=== PATIENT | male | born 1960 | race Caucasian/White ===

== ENCOUNTER → 2024-07-16 | Outpatient (CLI) | payer OTHER, SELFPAY ==
--- NOTE | 2024-07-16 08:00 | PROSBIL_PTH ---
PATHOLOGY RESULTS PATIENT: RAJAT JUDGE LOC: [facility] U#:[id number] AGE/SX: 63/M ROOM: RE07/16/[address]: Dr. Chaz Shirley MD : [id number] BED: DIS: 07/16/2024 SPEC #: [id number] RECD: 07/16/24 08:00 STATUS: ERICA JASBIR #: [id number] JANETT: 07/16/24 08:[address]: Chaz Shirley DEPT: SURGICAL PATHOLOGY RECD BY: Patricia Oleary ENTERED: 07/17/24 10:01 SP TYPE: PROST BX OT DR: Dr. Felix Burnham MD Tissues: PROSTATE RIGHT PROSTATE RIGHT PROSTATE RIGHT PROSTATE LEFT PROSTATE LEFT PROSTATE LEFT Procedures: PROSTATE BX HEADER OPERATION: Prostate biopsy PRE-OP DIAGNOSIS: Elevated PSA TISSUE SUBMITTED: A - Right apex, B - Right mid, C - Right base, D - Left apex, E - Left mid, F - Left base MICROSCOPIC DIAGNOSIS A. Right prostate, apex, core biopsy: Prostatic adenocarcinoma. Aneta grade: 3+4=7 Number of cores involved: 2/3 Proportion of tissue involved: 40% Perineural invasion: Not identified. Greatest tumor length: 0.3cm B. Right prostate, mid, core biopsy: Prostatic adenocarcinoma. Aneta grade: 3+4=7 Number of cores involved: 2/2 Proportion of tissue involved: 40% Perineural invasion: Not identified. Greatest tumor length: 0.7cm C. Right prostate, base, core biopsy: Prostatic adenocarcinoma. Aneta grade: 3+3=6 Number of cores involved: 1/1 Proportion of tissue involved: 50% Perineural invasion: Present, focal. Greatest tumor length: 0.7cm D. Left prostate, apex, core biopsy: Prostatic tissue, negative for malignancy. Acute and chronic inflammation. E. Left prostate, mid, core biopsy: Prostatic adenocarcinoma. Aneta grade: 3+3=6 Number of cores involved: 1/1 Proportion of tissue involved: 80% Perineural invasion: Not identified. Greatest tumor length: 0.5cm F. Left prostate, base, core biopsy: Prostatic adenocarcinoma. [place]hall grade: 3+3=6 Number of cores involved: 2/2 Proportion of tissue involved: 75% Perineural invasion: Not identified. Greatest tumor length: 0.3cm FLORI/ 07/18/2024 MICROSCOPIC DESCRIPTION Slides are reviewed. GROSS DESCRIPTION A - Received is one container designated prostate, right apex. The specimen consists of three elongated fragments of light thompson-white soft tissue measuring 0.5 to 0.9 cm in length and 0.1 cm in diameter. The specimen is totally submitted in one cassette. B - Received is one container designated prostate, right mid. The specimen consists of two elongated fragments of light thompson-white soft tissue measuring 0.6 and 1.3 cm in length and 0.1 cm in diameter. The specimen is totally submitted in one cassette. C - Received is one container designated prostate, right base. The specimen consists of one elongated fragments of light thompson-white soft tissue measuring 1.3 cm in length and 0.1 cm in diameter. The specimen is totally submitted in one cassette. D - Received is one container designated prostate, left apex. The specimen consists of two elongated fragments of light thompson-white soft tissue measuring 0.3 and 0.5 cm in length and 0.1 cm in diameter. The specimen is totally submitted in one cassette. E - Received is one container designated prostate, left mid. The specimen consists of one elongated fragments of light thompson-white soft tissue measuring 0.7 cm in length and 0.1 cm in diameter. The specimen is totally submitted in one cassette. F - Received is one container designated prostate, left base. The specimen consists of two elongated fragments of light thompson-white soft tissue each measuring 0.3cm in length and 0.1 cm in diameter. The specimen is totally submitted in one cassette. / SJ.mr 07/17/2024 TC:0 CPT: 31929 x6
== END | disposition home or self-care (01) ==
LOC: LABSPEC 16:32
PROVIDERS: PCP Dentist; Referring Provider Urology; Visit Provider Urology
DX: C61 Malignant neoplasm of prostate (principal)
CPT/HCPCS: 88305; G0416

== ENCOUNTER → 2024-08-21 | Outpatient (CLI) | payer OTHER, SELFPAY ==
--- NOTE | 2024-08-21 08:18 | CT_ITS ---
STUDY: CT ABDOMEN AND PELVIS WITH CONTRAST REASON FOR EXAM: Male, 63 years old. New diagnosis of MALIGNANT NEOPLASM PROSTATE RADIATION DOSAGE (If Supplied By Facility): CTDIvol = ( 13.91 ) mGy, DLP = ( 1055.18 ) mGycm TECHNIQUE: Transaxial images were obtained from the dome of the diaphragm to the symphysis pubis without oral contrast. IV 100mL Isovue-300 was administered. Sagittal and coronal images were reconstructed. Individualized dose optimization techniques were used for this CT. COMPARISON: None. FINDINGS: Minimal degree of dependent bibasilar atelectasis. The visualized portions of the heart are within normal limits. Multiple hepatic cysts are seen. The largest cyst is in the inferior aspect of the right lobe of the liver and measures 7.8 cm x 7 cm. Normal gallbladder and extrahepatic biliary system. Normal spleen. Normal pancreas. Normal bilateral adrenal glands. There is a 2.3 cm cyst in the mid medial posterior aspect of the right kidney. 2.4 cm cyst in the inferior medial anterior aspect of the left kidney. Normal visualized stomach. Normal small intestine. Normal colon. There are surgical clips in the region of the appendix consistent with a prior appendectomy. Normal abdominal aorta. Normal inferior vena cava. Normal retroperitoneum. Normal urinary bladder. Heterogeneous appearance of the prostate. The prostate measures 4.1 cm x 4.9 cm. Mild degree of central prostatic calcification. Normal abdominal wall. There are degenerative changes of the visualized lumbar spine. CT/Abdomen/Pelvis WITH Contrast IMPRESSION: Heterogeneous appearance of the prostate. Small bilateral renal cysts. Multiple hepatic cysts as described. Hiatal hernia. Electronically Signed: Nino Yepez MD at 15:07 EST ,
[2024-08-21 08:45] LABS: CREATININE FINGERSTICK < 1.0 mg/dL (0.70-1.30); EGFR FINGERSTICK > 60.0000 mL/min (>60)
== END | disposition home or self-care (01) ==
LOC: CT 08:17
PROVIDERS: PCP Dentist; Referring Provider Urology; Visit Provider Urology
DX: C61 Malignant neoplasm of prostate (principal)
CPT/HCPCS: 74177; Q9967

== ENCOUNTER → 2024-08-24 | Outpatient (CLI) | payer OTHER, SELFPAY ==
--- NOTE | 2024-08-24 07:49 | NM_ITS ---
CLINICAL: 63-year-old male with history of primary prostate carcinoma. WHOLE BODY 99m Tc MDP RADIONUCLIDE BONE SCINTIGRAPHY COMPARISON: CT of the abdomen-pelvis report 08/21/2024 FINDINGS: Following the intravenous administration of 27.6 mCi of 99m Tc MDP, whole body bone images reveal: 1. Increased tracer uptake is noted in the medial femoral and lateral tibial compartments of the left knee, the acromioclavicular compartment of the right shoulder, the sternoclavicular compartments of both shoulders, the left posterior sacrum, the posterior compartments of both ankles. 2. The remaining skeletal structures are scintigraphically unremarkable with normal-appearing renal images and urinary bladder activity identified. Enhanced uptake is noted in the bilateral maxilla and midline mandible most consistent with periodontal disease and/or periostitis. NM/Bone Scan Whole Body IMPRESSION: 1. The increase in radiopharmaceutical defined in the left knee, shoulders bilaterally, the posterior sacrum and bilateral ankle articulations is commensurate with degenerative arthritis. 2. There is no scintigraphic evidence of diffuse axial skeletal metastatic disease on the current examination. Electronically Signed: Brian Wright DO at 8:52 EST ,
== END | disposition home or self-care (01) ==
LOC: NM 07:49
PROVIDERS: PCP Dentist; Referring Provider Urology; Visit Provider Urology
DX: C61 Malignant neoplasm of prostate (principal)
CPT/HCPCS: 78306; A9503

== ENCOUNTER 2024-10-31 11:08 | Observation (INO) | payer OTHER, SELFPAY ==
--- NOTE | 2024-10-23 12:15 | EKG12_ITS ---
Test Reason : PRE OP Blood Pressure : */* mmHG Vent. Rate : 69 BPM Atrial Rate : 69 BPM P-R Int : 134 ms QRS Dur : 74 ms QT Int : 380 ms P-R-T Axes : 1 5 31 degrees QTcB Int : 407 ms Normal sinus rhythm Inferior-posterior infarct , age undetermined Abnormal ECG Confirmed by SHELLI ORDAZ, YOCASTA ([id number]), movie editor DO LOPEZ ([id number]) on 10/24/2024 7:39:11 AM Referred By: Chaz Shirley Confirmed By: YOCASTA MARQUES MD
[2024-10-23 13:49] LABS: Hematocrit 46.8 % (40-54); Hemoglobin 15.5 g/dL (13.0-16.5); Mean Corp Hgb Conc 33.1 g/dL (32-36); Mean Corpuscular Hgb 31.7 pg (27.0-32.0); Mean Corpuscular Volume 95.7 fL (80-94); Mean Platelet Vol. 8.8 fl (6.2-12.0); Platelet Count 221 K/mm3 (150-450); RBC Distribution Width CV 13.4 % (11.6-14.6); RBC Distribution Width SD 47.3 fl (35.1-43.9); Red Blood Count 4.89 M/mm3 (4.6-6.2); White Blood Count 8.4 K/mm3 (4.4-11.0)
--- NOTE | 2024-10-23 17:31 | PAT.ANE_ITS ---
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 When Was Last Pacemaker Check QUESTION #4 FULL TEXT: You/Your Family Experience fever (hyperthermia) with Anesthesia Last Oral Intake Last Oral intake: Last Oral Intake NPO since Meds taken in AM with sips of water? Meds patient instructed to take am of surgery PONV PONV - electrical tech/project manager: PONV - electrical tech/project manager Female No 10/16/24 09:32 HX of Motion Sickness No 10/16/24 09:32 HX of N/V After Surgery No 10/16/24 09:32 Non-Smoker Yes 10/16/24 09:32 Duration of Surgery greater Yes 10/16/24 09:32 than 60 minutes Number of Risk Factors 2 10/16/24 09:32 PONV Score Moderate Risk 10/16/24 09:32 Respiratory Assessment Respiratory Assessment - electrical tech/project manager: Respiratory Tract Infection Hx - electrical tech/project manager Hx Respiratory Tract Infection No 10/16/24 09:32 STOP Sleep Apnea STOP Sleep Apnea - electrical tech/project manager: STOP Sleep Apnea - electrical tech/project manager Hx Hypertension No 10/16/24 09:32 Hx Sleep Apnea No 10/16/24 09:32 CPAP BIPAP Do you snore loudly (louder No 10/16/24 09:32 than talking or can be heard Do you often feel tired/ No 10/16/24 09:32 fatigued/ sleepy during daytime? Has anyone observed you stop No 10/16/24 09:32 breathing during sleep? STOP Results Negative 10/16/24 09:32 QUESTION #5 FULL TEXT : Do you snore loudly (louder than talking or can be heard through closed doors)? 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 Specify any problems Hx of Preganancy in last 3 N/A 10/16/24 09:32 Months Nurse Filling Out Transfusion VCHRISTIN 10/16/24 09:32 & Questions: Date: 10/16/24 10/16/24 09:32 Time: 09:33 10/16/24 09:32 Patient unable to answer at this time (ie. confused, unrespo /Reproduction History /Reproductive History - electrical tech/project manager: /Reproductive Hx- electrical tech/project manager Hx Now Gestational Age (in weeks): EDC: Hx Hx Para Hx Section SAB PFSH Medical History (Updated 10/16/24 @ 09:40 by Randa Wagner) High cholesterol Wears glasses Alcohol use Arthritis Gastric reflux Non-smoker Hx of cataract Hx of retinal detachment Home Medications ?Medication ?Instructions ?Recorded ?Last Taken ?Type brimonidine 0.2 % eye drops 1 drp ophthalmic (eye) BID 10/16/24 Unknown History cholecalciferol (vitamin D3) 25 25 mcg PO DAILY Unknown History mcg (1,000 unit) capsule (Vitamin D3) dorzolamide 22.3 mg-timolol 6.8 1 drp ophthalmic (eye) BID 10/16/24 Unknown History mg/mL eye drops latanoprostene bunod 0.024 % eye 1 drp ophthalmic (eye ) DAILY 10/16/24 Unknown History drops (Vyzulta) multivitamin (Daily Multi-Vitamin 1 tab PO DAILY 10/16 Unknown History tablet) simvastatin 40 mg tablet 40 mg PO QHS 10/16/24 Unknow n History Allergy/AdvReac Type Severity Reaction Status Date / Time No Known Allergies Allergy Verified 10/16/24 09:21 Surgical History (Updated 10/16/24 @ 09:32 by Randa Wagner) Hx of hernia repair Hx of eye surgery Hx of appendectomy Social History Smoking Status: Never smoker Audit: Pertinent Findings Pertinent Findings EKG Perinent findings: October 23, 2024. Normal sinus rhythm. Inferior- posterior infarct age undetermined. Recommendation Anesthesia Recommendation Anesthesia recommendation: OPTIMIZED for anesthesia
[2024-10-31] VITALS (17 sets, daily range): BP systolic 105–165; BP diastolic 67–108; PULSE 64–104; RESP 16–20; TEMP 35.8–37.1; O2SAT 92–98; BMI 29.5
[2024-10-31] MEDS: 0.9% Normal Saline (1000mL) 1,000 ML 15 ML IV (06:00)
--- NOTE | 2024-10-31 06:49 | PRE.ANES_ITS ---
ASA Classification* ASA Classification ASA Classification: 2 Assessment & Plan Anesthesia* Anesthesia Assessment Anesthesia Assessment: Discussed sedation and/or anesthesia options, risks, benefits, and alternatives with patient/parents/legal guardian/POA. Questions invited. The patient/parents/legal guardian/POA seems to understand and agrees to proceed with anesthesia plan. Reviewed the physical assessment, medical history, allergy history and patient home medications list prior to surgery/procedure/anesthetic and documented any changes. Performed airway and anesthesia risk assessments. Anesthesia Type Anesthesia Type: General Anesthesia Focused Assessment* Temperature: 96.5 F Pulse Rate: 76 Blood Pressure: 165/108 Respiratory Rate: 20 Pulse Ox: 97 Airway Assessment Mouth opens: >3 cm Mallampati Score: II Focused Labs Anesthesia Preop lab: CBC WBC 8.4 K/mm3 (4.4-11.0) 10/23/24 13:36 10/23/24 RBC 4.89 M/mm3 (4.6-6.2) 10/23/24 13:36 10/23/24 Hgb 15.5 g/dL (13.0-16.5) 10/23/24 13:36 10/23/24 Hct 46.8 % (40-54) 10/23/24 13:36 10/23/24 Plt Count 221 K/mm3 (150-450) 10/23/24 13:36 10/23/24 CHEMISTRY COAG Pre-Assessment Diagnosis/Proposed Procedure Planned Operative Procedure(s): Lap Robotic Radical Prostatectomy Anesthesia History 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 When Was Last Pacemaker Check QUESTION #4 FULL TEXT: You/Your Family Experience fever (hyperthermia) with Anesthesia Last Oral Intake Last Oral intake: Last Oral Intake NPO since 20:00 10/31/24 06:20 Meds taken in AM with sips of No 10/31/24 06:20 water? Meds patient instructed to take am of surgery PONV PONV - maintenance repairman: PONV - maintenance repairman Female No 10/16/24 09:32 HX of Motion Sickness No 10/16/24 09:32 HX of N/V After Surgery No 10/16/24 09:32 Non-Smoker Yes 10/16/24 09:32 Duration of Surgery greater Yes 10/16/24 09:32 than 60 minutes Number of Risk Factors 2 10/16/24 09:32 PONV Score Moderate Risk 10/16/24 09:32 Height & Weight Height & Weight: Anesthesia: Height & Weight Height 5 ft 8 in 10/31/24 06:20 Weight: 88 kg 10/31/24 06:20 Body Mass Index (BMI) 29.5 10/31/24 06:20 Respiratory Assessment Respiratory Assessment - maintenance repairman: Respiratory Tract Infection Hx - maintenance repairman Hx Respiratory Tract Infection No 10/16/24 09:32 STOP Sleep Apnea STOP Sleep Apnea - maintenance repairman: STOP Sleep Apnea - maintenance repairman Hx Hypertension No 10/16/24 09:32 Hx Sleep Apnea No 10/16/24 09:32 CPAP BIPAP Do you snore loudly (louder No 10/16/24 09:32 than talking or can be heard Do you often feel tired/ No 10/16/24 09:32 fatigued/ sleepy during daytime? Has anyone observed you stop No 10/16/24 09:32 breathing during sleep? STOP Results Negative 10/16/24 09:32 QUESTION #5 FULL TEXT : Do you snore loudly (louder than talking or can be heard through closed doors)? 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 Specify any problems Hx of Preganancy in last 3 N/A 10/16/24 09:32 Months Nurse Filling Out Transfusion VCHRISTIN 10/16/24 09:32 & Questions: Date: 10/16/24 10/16/24 09:32 Time: 09:33 10/16/24 09:32 Patient unable to answer at this time (ie. confused, unrespo /Reproduction History /Reproductive History - maintenance repairman: /Reproductive Hx- maintenance repairman Hx Now Gestational Age (in weeks): EDC: Hx Hx Para Hx Section SAB Active Medications Active Medications: Current Medications Generic Name Dose Route Start Last Admin Trade Name Freq PRN Reason Stop Dose Admin Cefazolin Sodium 2 gm/ N/A 20 mls @ 400 mls/hr 10/31/24 07:30 IV 10/31/24 07:32 PREOP ONE Sodium Chloride 1,000 mls @ 15 mls/hr 10/31/24 06:00 IV 11/05/24 19:19 .Q48H [facility] Protocol PFSH Medical History High cholesterol Wears glasses Alcohol use Arthritis Gastric reflux Non-smoker Hx of cataract Hx of retinal detachment Home Medications ?Medication ?Instructions ?Recorded ?Last Taken ?Type brimonidine 0.2 % eye drops 1 drp ophthalmic (eye) BID 10/16/24 10/31/24 History cholecalciferol (vitamin D3) 25 25 mcg PO DAILY 10/28/24 History mcg (1,000 unit) capsule (Vitamin D3) dorzolamide 22.3 mg-timolol 6.8 1 drp ophthalmic (eye) BID 10/16/24 10/31/24 History mg/mL eye drops latanoprostene bunod 0.024 % eye 1 drp ophthalmic (eye ) DAILY 10/16/24 10/31/24 History drops (Vyzulta) multivitamin (Daily Multi-Vitamin 1 tab PO DAILY 10/1610/28/24 History tablet) simvastatin 40 mg tablet 40 mg PO QHS 10/16/24 History Allergy/AdvReac Type Severity Reaction Status Date / Time No Known Allergies Allergy Verified 10/31/24 06:18 Surgical History Hx of hernia repair Hx of eye surgery Hx of appendectomy Social History Smoking Status: Never smoker Review of Systems (Anesthesia) ROS Narrative System reviewed and no additional complaints, except as documented.
--- NOTE | 2024-10-31 07:08 | PCM.HP.STD ---
HPI - General General Date of Service: 10/31/24 Chief Complaint: prostate cancer HPI Narrative RAJAT JUDGE, is a 64 M who presents for a radical prostatectomy for prostate cancer PFSH Medical History High cholesterol Wears glasses Alcohol use Arthritis Gastric reflux Non-smoker Hx of cataract Hx of retinal detachment Home Medications ?Medication ?Instructions ?Recorded ?Last Taken ?Type brimonidine 0.2 % eye drops 1 drp ophthalmic (eye) BID 10/16/24 10/31/24 History cholecalciferol (vitamin D3) 25 25 mcg PO DAILY 10/16/24 10/28/24 History mcg (1,000 unit) capsule (Vitamin D3) dorzolamide 22.3 mg-timolol 6.8 1 drp ophthalmic (eye) BID 10/16/24 10/31/24 History mg/mL eye drops latanoprostene bunod 0.024 % eye 1 drp ophthalmic (eye) DAILY 10/16/24 10/31/24 History drops (Vyzulta) multivitamin (Daily Multi-Vitamin 1 tab PO DAILY 10/16/24 10/28/24 History tablet) simvastatin 40 mg tablet 40 mg PO QHS 10/16/24 10/30/24 History Allergy/AdvReac Type Severity Reaction Status Date / Time No Known Allergies Allergy Verified 10/31/24 06:18 Surgical History Hx of hernia repair Hx of eye surgery Hx of appendectomy Social History Smoking Status: Never smoker Vital Signs Vital Signs Vital Signs: 10/31/24 06:20 10/31/24 06:20 10/31/24 06:50 Temperature 96.5 F L 96.5 F L Temperature Source Temporal Pulse Rate 76 76 Respiratory Rate 20 H 20 H Respiratory Pattern Normal Blood Pressure 165/108 H 165/108 H Blood Pressure Mean 127 Blood Pressure Source Monitor Blood Pressure Position Semi-Fowlers Blood Pressure Location Right Arm Pulse Ox 97 97 Oxygen Delivery Method Room Air Weight Weight: 88 kg Body Mass Index (BMI) 29.5 Results Lab / Micro Data 10/23/24 13:36
--- NOTE | 2024-10-31 07:30 | PROST_PTH ---
PATIENT: RAJAT JDUGE LOC: MS2 U#:[id number] AGE/SX: 64/M ROOM: [facility] RE10/31/[address]: Dr. Chaz Shirley MD : 1960 BED: 1 DIS: 11/01/2024 SPEC #: [id number] RECD: 10/31/24 13:11 STATUS: ERICA MARTELL #: [id number] JANETT: 10/31/24 07:[address]: Chaz Shirley DEPT: SURGICAL PATHOLOGY RECD BY: Ranjith Brown ENTERED: 11/01/24 07:20 SP TYPE: PROSTATE OTHR DR: Dr. Felix Burnham MD Tissues: A - Urinary bladder, NOS B - Ureter, NOS Prostate, NOS Procedures: Surgery Specimen Level IV Surgery Specimen Level HEADER OPERATION: Laparoscopic robotic radical prostatectomy PRE-OP DIAGNOSIS: Prostate cancer TISSUE SUBMITTED: A- Bladder neck margin, B- Urethral margin, C- Prostate MICROSCOPIC DIAGNOSIS A. Bladder neck margin, biopsy: Negative for carcinoma. B. Urethral margin, biopsy: Negative for carcinoma. Chronic inflammation C. Prostate, radical prostatectomy: Prostatic adenocarcinoma. See cancer summary in the comment section. 11/05/2024 COMMENT C. PROSTATE CANCER (RADICAL) SUMMARY: Procedure: Radical Prostatectomy Prostate Size: Weight: 51.1gm Size: 4.5 cm transversely, 3.5 cm anterior-posteriorly and 3 cm craniocaudally Histologic Type: Adenocarcinoma Histologic Grade: Grade Group 2 (Aneta score: 3+4=7) Percent of Pattern 4: ~20% Intraductal Carcinoma: intraductal carcinoma cells present, focal Tumor Quantitation: Estimated percentage of prostate involved by tumor: ~30-40%. Tumor involves both right and left lobes. Tumor in the right lobe present in apical and mid portion of the prostate and measures about 2 x 1.6 x 1cm (measured microscopically). Tumor in the left lobe involves apical, mid and basal portions of the prostate, in discontinuous manner and measures about 2.5 x 2 x 1cm (measured microscopically). Extraprostatic Extension: Not identified Urinary Bladder Neck Invasion: Not identified Seminal Vesicle Invasion: Not identified Lymphvascular Invasion: Not identified Perineural Invasion: Present, frequent Margins: The tumor is present at the right posterior margin, about 0.1mm in greatest dimension. The tumor is present in the apical portion, in the prostatectomy specimen, however, the specimen B, urethral margin is negative for carcinoma. Location of positive margin: right posterior. Regional Lymph Nodes: No known lymph nodes submitted or found Treatment Effect: No known presurgical therapy Additional Pathologic Findings: - Chronic inflammation. - Focal high-grade prostatic intraepithelial neoplasia (HGPIN). Ancillary studies: Not performed PATHOLOGIC STAGE: pT2 pNx pMx The above summary is in compliance with [employer] (CAP) Cancer Protocols Checklist and [place] [employer] Committee on Cancer (AJCC), Staging Manual, 8th Ed. Please make reference to previous specimen [id number] right prostate, apex, right prostate, mid, right prostate, base and left prostate mid and left prostate base core biopsies with diagnosis of prostatic adenocarcinoma. This case has been reviewed in consultation with Dr. Desir who concurs with the above diagnosis. IDC:[id number] MICROSCOPIC DESCRIPTION Slides are reviewed. GROSS DESCRIPTION A. Received in fixative is one container labeled with the patient's name and designated Bladder neck margin. The specimen consists of an irregular piece of pink congested soft tissue measuring 2 x 1 x 1cm. The specimen is bisected and submitted entirely in one cassette. B. Received in fixative is one container labeled with the patient's name and designated Urethral margin. The specimen consists of two pieces of thompson soft tissue measuring in aggregate 1 x 1 x 0.2cm. The entire specimen is submitted in one cassette. C. Received in fixative is one container labeled with the patient's name and designated prostate. The specimen consists of a radical prostatectomy specimen consisting of prostate and bilateral seminal vesicles and vas deferens. The specimen weighs 51.1gm. The prostate measures 4.5 cm transversely, 3.5 cm anterior-posteriorly and 3 cm craniocaudally. The right seminal vesicle measures 3 x 2 x 1 cm and right vas deferens measures 4 cm in length and 0.5 cm in diameter. The left seminal vesicle measures 3 x 2 x 1.5 cm and the left vas deferens measures 2.5 cm in length and 0.5 cm in diameter. The prostate is inked as follows: seminal vesicle-black, anterior margin -yellow, right lateral surface prostate- blue, left lateral surface -green, anterior surface right seminal vesicle -blue, anterior surface left seminal vesicle and vas deferens - green. The bilateral seminal vesicles and vas deferens are inked as follows: Posterior surface bilateral seminal vesicle and vas deferens - black, anterior surface right seminal vesicle and vas deferens - blue and anterior left seminal vesicle and vas deferens - green. Sections reveal focal thompson indurated areas. No illdefying mass is noted. Mice Raiser sections are submitted in 17 cassettes as follows: 1 - right seminal vesicle and vas deferens, 2 - left seminal vesicle and vas deferens, 3 - apical (urethral) margin, enface, 4&5- bladder neck and basal portion of prostate margin, enface, 6-9 - apical portion prostate, 10-13 - middle portion prostate, 14-17 - basal portion prostate. Sections are submitted after additional fixation. SJ: 11/01/2024 TC:0 CPT:[id number]
[2024-10-31] MEDS: Cefazolin 2 GM in Syringe IV (07:36)
[2024-10-31] MEDS: Bupivacaine Mpf 0.5% 30 ML VIAL (11:05)
--- NOTE | 2024-10-31 11:13 | DCINST_ITS ---
Discharge Instructions Diet Discharge Diet: Light diet - advance as tolerated and Soft diet DC O2, CPAP, BIPAP needs Home O2 Discharge instructions: No Dressing / Incision Discharge Activity: May Not Drive Return to work on:: 12/12/24 May shower in (days): 1 Dressing / Incision Call your doctor if your incision/area has: Continuous Slow Oozing and Sudden Increased Bleeding Call your doctor if you observe: Fever of 101 or Higher and Uncontrolled pain Suture Line Care: Avoid Pulling/Pushing Catheter: Solorzano to leg bag and Solorzano to large bag Drain: [place] Additional Dressing/Incision Instructions:: IRMA drain care, measure drainage daily Follow Up Care Please Follow Up With: Chaz Shirley MD When: call for appt 2 weeks, home with solorzano and IRMA drain Test Results: Test results from this visit will be discussed in further detail at your follow- up appointment, if applicable. Discharge Plan Admission Primary Reason for Your Visit: Radical prostatectomy Attending Provider: Chaz Shirley Primary Care Provider: Felix Burnham Instructions Print Language: [place] Discharge Orders/Prescriptions Prescriptions: New oxycodone 5 mg tablet 5 mg PO Q6H PRN (Reason: pain) 3 Days Qty: 14 0RF ciprofloxacin HCl 500 mg tablet 500 mg PO BID Qty: 20 0RF docusate sodium [Colace] 100 mg capsule 100 mg PO BID Qty: 20 0RF Continued simvastatin 40 mg tablet 40 mg PO QHS brimonidine 0.2 % drops 1 drp ophthalmic (eye) BID dorzolamide-timolol 22.3-6.8 mg/mL drops 1 drp ophthalmic (eye) BID Vyzulta 0.024 % drops 1 drp ophthalmic (eye) DAILY Patient Comments: 1 DROP RIGHT EYE DAILY multivitamin [Daily Multi-Vitamin] Tablet 1 tab PO DAILY cholecalciferol (vitamin D3) [Vitamin D3] 25 mcg (1,000 unit) capsule 25 mcg PO DAILY Referrals / Follow Up: Chaz Shirley MD [Med Staff - Active Staff] - Felix Burnham MD [Primary Care Provider] - Disposition Disposition (needs filled in before D/C Order can be placed): Home, Self Care
--- NOTE | 2024-10-31 11:14 | PCM.OPRPT ---
Operative Report (Standard) Operative Information Date of Procedure: 10/31/24 Pre-Operative Diagnosis: Prostate cancer Post-Operative Diagnosis: The same Surgery/Procedure Performed: Laparoscopic robotic assisted radical prostatectomy bottoming machine operator: Yes Bin Filler: Bridget Khan Tasks completed by hospital aides and assistants teacher: Opening, Closing, Opening & closing, Harvesting grafts, Dissecting tissue, Removing tissue, Implanting device, Altering tissue, Insert Trochanter, Hemostasis: Clamp, Hemostasis: Tie, Hemostasis: Electrocautery, Trocar, Retracting and Other Type of Anesthesia: General RN Documented Start/Stop Times: Operation Date: 10/31/24 07:30 Case Time Into Pre-Op 10/31/24 05:59 Out of Pre-Op 10/31/24 07:28 Anesthesia Start 10/31/24 07:29 Into Room 10/31/24 07:29 Procedure Start 10/31/24 07:55 Procedure End 10/31/24 11:09 Procedure Start Time: 07:55 Procedure Stop Time: 11:15 Select all DRAINS/GRAFTS/IMPLANTS that apply: Drains Drain details: solorzano and IRMA Estimated Blood Loss: 200 Specimen collected: Yes Description of specimen(s) removed: prostate Description of surgery: Patient was identified in the preoperative area and marked and seen we talked about surgery remove his prostate was involved and potential outcomes. We talked about the potential to lose erections and also have bladder control problems after surgery including stress incontinence. Patient's questions were addressed and he signed consent form and we will plan to proceed today with a robotic radical prostatectomy Retzius. Approach with bilateral lymph node dissection. Patient is taken back to the operating room after smooth induction of anesthesia he was placed upon the table make sure all his pressure points were padded. We used the pink foam and pink foam secure system to secure him on the table he was placed in dorsolithotomy position with the legs in stirrups making sure that all his pressure points were padded we did a tilt test to make sure he did not slide in the bed. And the patient was placed flat in the bed his penis and testicles and pelvic area were prepped and in the abdomen was also prepped with chlorhexidine prep. Patient's abdomen and penis and testicles were then draped in usual sterile fashion. I then identified the umbilicus infiltrated right above the umbilicus and a small incision, probed the wound with a hemostat identified the fascia and then used a Veress needle to advance through the fascia into the peritoneal cavity. We then filled the peritoneal cavity CO2 gas and obtained a pneumoperitoneum. I then placed my first trocar into the abdomen this was to be the camera trocar. After I placed the camera trocar then the other trocars were placed under direct visualization placed a right arm trocar to left arm trocars and air seal port and a suction trocar for my behavioral health assistant. We then placed the patient in full Trendelenburg and the robot was then docked. Then using a 30 degree lens we placed the instruments into the abdomen under direct visualization and started by first mobilizing the sigmoid colon. The sigmoid colon and the white line of Toldt was incised and mobilized off the lateral sidewall to allow full retraction of the colon from the pelvis. Once this was fully accomplished then I was able to get into the posterior space behind the bladder we then identified the vas deferens on the right side. I then traced the right vas deferens all the way down to the prostate we incised the peritoneum over the prostate identified the right vas deferens and then the left vas deferens. Identified the several vesicles below this. I then went below this and identified Denonvilliers' fascia and incised the Denonvilliers' fascia in the midline and then created a space between the rectum and the prostate I then dissected all the way to the apex. We then flipped the camera 30 degrees up to get a bit better visualization of the prostate. I then very gently dissected the Denonvilliers' fascia off the posterior aspect of the prostate all the way to the apex of sliding the tissue off the prostate to get to the semipseudocapsule on the prostate with unable to get to the lateral edge of the prostate and then to release neurovascular bundles on both sides I then started between the apex of the prostate to release neurovascular bundle to peel the neurovascular 1 off the prostate making sure I stayed around the apex without violating the prostate capsule I then worked my way back toward the base of the prostate releasing the neurovascular under posteriorly back to the base of the prostate. This was done on the right side we did the same procedure in the left side releasing the neurovascular bundle posteriorly all the way back to the base of the prostate. I then pulled out and look at the vas deferens some vesicles I transected the vas deferens and then dissected the vas deferens and some vesicles en bloc of the lateral sidewall was using minimal electrocautery and sharp dissection to free up the vas deferens and vesicle I then was able to laterally retract the right vas deferens medially and then started working to get the space between the edge of the prostate and the pseudocapsule identified the pseudocapsule and then coming to the pedicle the prostate with bipolar coagulation on the right side and then following the capsule all the way toward the apex and then following up along the prostate capsule for the apex releasing the neurovascular bundle off the right side working on my way anterior. We then pulled out the pelvis prostate area again and then dissected out the left seminal vesicle and left vas deferens and then pulled these laterally and then again I went to the pedicle of the prostate and then was able to identify the neurovascular bundle that was priorly freed up and then freed up the Norvasc of 10 and then worked my way on the left side the prostate all the way to the apex freeing up the tissue off the left pseudocapsule the prostate all the way anteriorly. Then I worked toward the anterior part of the prostate freeing up the prostate is much as possible anteriorly toward the apex in the back to the bladder neck then at this point I could identify the bladder neck more clearly since the prostate then. Freed up laterally and medially and inferiorly I then very carefully started dissecting through the muscular attachments between the bladder neck and the prostate until I encountered the urethra and the Solorzano catheter at this point Solorzano catheter was deflated and pulled back and then I continued to dissect off the bladder neck from the prostate working all the way up to the base of the prostate and then anterior the prostate. Then the Solorzano catheter was pulled back further and then I worked my way up to the apex of the prostate and then circumferentially dissected all the way up to the apex of prostate making sure to stay outside the capsule and identify the sphincter complex I then incised the urethra right in front of the sphincter and dissected off the prostate off the sphincter complex and then the prostate was free and was placed in Endo Catch bag. Prior to this also in the bladder neck place a stay suture 3-0 Vicryl to locate the bladder neck. Then we proceeded with our anastomosis between the urethra and the bladder neck this was done using a 2 oh STRATAFIX stitch to bring together the bladder neck and the urethra started at the 12 o'clock position and worked my way to the 6 o'clock position on the right side and the left side used a dyed and undyed suture to make sure to keep both sutures aligned up and then at the end I was able to bring down the bladder neck to the urethra and then we took out the catheter that was initially put in to the abdomen for the case and we put in the 18 [place] tip catheter into the bladder helped it as it made to the turn to the bladder and then we put 10 cc in the balloon we irrigated the bladder and had a small leak so a 2nd layer of stitches placed with 3-0 Vicrl, after this retested the anastomosis still have a very small leak so IRMA drain was left in place under bladder. We then inspected for bleeding and there was no bleeding in the base of the where the prostate was removed. The role of the multimedia journalist MOBILE QA TESTER, assisted with myself during the entire procedure, the MOBILE QA TESTER assisted by passing instruments through the air seal port, passing suture, needles, sponges during the surgery. The RFA also assisted with providing some suction using the suction irrigation and some irrigation during the surgery. Also the behavioral health assistant provided some traction minorly during the dissection of the prostate and the seminal vesicles. The RFA also helped me extract the prostate at the end of the case and helped close the fascia, and the behavioral health assistant also helped close the skin incisions with subcuticular stitches. The behavioral health assistant was monitored closely and under my direct supervision the entire case. Surgical Findings: prostate removed, bladder neck margin and urethral margin Complications Complications: No Admit VTE Documentation VTE Present on Admission: No VTE Mechan Device Prophylaxis: SCD's VTE Pharm Prophylaxis ordered?: No
--- NOTE | 2024-10-31 11:23 | PCM.POST.ANE ---
Anesthesia: Postop Eval I Current Vital Signs Temperature: 98.6 F Pulse Rate: 86 Blood Pressure: 141/86 Respiratory Rate: 16 Pulse Ox: 94 Oxygen Delivery Method: Room Air Assessment Airway patent: Yes Spontaneous unlabored respirations: Yes Mental status: Awake and Calm nausea: No Vomiting: No Anesthesia Complication: No Fluid Hydration Crystalloid volume administer (ml): 800 Total IV fluid infused: 800 Progress Note Anesthesia document: Postop Eval 1 completed: Yes
--- NOTE | 2024-10-31 11:43 | POSTOPAN2_ITS ---
Anesthesia Postop Eval I Sum Postop Eval Completion status Anesthesia document: Postop Eval 1 completed: Yes Anesthesia Postop Eval I Summary Anesthesia Postop Eval I Summary: Anesthesia Postop Eval I: Assessment Summary Airway patent Yes 10/31/24 11:24 GOLD [email or web address] Spontaneous unlabored Yes 10/31/24 11:24 GOLD [email or web address] respirations Mental status Awake,Calm 10/31/24 11:24 GOLD [email or web address] nausea No 10/31/24 11:24 GOLD MARKER.[email or web address] Vomiting No 10/31/24 11:24 GOLD [email or web address].[email or web address] Anesthesia Postop Eval I: Fluid Summary Crystalloid volume administer 800 10/31/24 11:24 GOLD MARKER.SHENAOBY (ml) Colloids volume administered ( ml) Blood Product volume administered (ml) Total IV fluid infused 800 10/31/24 11:24 GOLD [email or web address] Anesthesia Postop Eval I: Summary Notes Anesthesia Complication No 10/31/24 11:24 GOLD [email or web address].[email or web address] Anesthesia Complication Comment: Post-operative progress note Anesthesia: Postop Eval II Evaluation Mental status: Awake Pain Level: 0 nausea: No Vomiting: No
--- NOTE | 2024-10-31 11:43 | PCM.POSTANE2 ---
Anesthesia Postop Eval I Sum Postop Eval Completion status Anesthesia document: Postop Eval 1 completed: Yes Anesthesia Postop Eval I Summary Anesthesia Postop Eval I Summary: Anesthesia Postop Eval I: Assessment Summary Airway patent Yes 10/31/24 11:24 PAINTER [email or web address] Spontaneous unlabored Yes 10/31/24 11:24 PAINTER [email or web address] respirations Mental status Awake,Calm 10/31/24 11:24 PAINTER [email or web address] nausea No 10/31/24 11:24 PAINTER [email or web address] Vomiting No 10/31/24 11:24 PAINTER [email or web address] Anesthesia Postop Eval I: Fluid Summary Crystalloid volume administer 800 10/31/24 11:24 PAINTER PLATE.SHENAOBY (ml) Colloids volume administered ( ml) Blood Product volume administered (ml) Total IV fluid infused 800 10/31/24 11:24 PAINTER [email or web address] Anesthesia Postop Eval I: Summary Notes Anesthesia Complication No 10/31/24 11:24 PAINTER [email or web address] Anesthesia Complication Comment: Post-operative progress note Anesthesia: Postop Eval II Evaluation Mental status: Awake Pain Level: 0 nausea: No Vomiting: No
[2024-10-31 12:10] LABS: Absolute Neutrophil Count 17.5 X10^3/uL (2.0-7.7); Basophil# 0.05 X10^3/uL; Basophil% 0.3 % (0-1); Eosinophil# 0.01 X10^3/uL; Eosinophils% 0.1 % (0-5); Hematocrit 46.2 % (40-54); Hemoglobin 15.3 g/dL (13.0-16.5); Lymphocyte % 3.8 % (19-41); Mean Corp Hgb Conc 33.1 g/dL (32-36); Mean Corpuscular Hgb 31.8 pg (27.0-32.0); Monocyte# 0.22 X10^3/uL; Monocyte% 1.2 % (0-10); NRBC Flagged by Analyzer 0 % (0-5); Neutrophil # 17.48 X10^3/uL (2.7-7.7); Platelet Count 202 K/mm3 (150-450); RBC Distribution Width SD 46.3 fl (35.1-43.9); Red Blood Count 4.81 M/mm3 (4.6-6.2); White Blood Count 18.6 K/mm3 (4.4-11.0)
[2024-10-31] MEDS: Ketorolac 15 MG/ML Vial IV (12:15)
[2024-10-31 12:20] LABS: Anion Gap 5 (5-15); BUN 13 mg/dL (7-18); BUN/Creat Ratio 12.3 RATIO (10-20); Calcium,Total 8.5 mg/dL (8.5-10.1); Chloride 111 mmol/L (98-107); Creatinine, Serum 1.06 mg/dL (0.70-1.30); EST Glomerular Filtration Rate 75 mL/min (>60); Est Glom Filt Rate - Afr Amer 90 mL/min (>60); Estimated Creatinine Clearance 75.92 ml/min; Glucose 174 mg/dL (74-106); Potassium 3.7 mmol/L (3.5-5.1); Sodium Level 141 mmol/L (136-145)
[2024-10-31] MEDS: 0.9% Normal Saline (1000mL) 1,000 ML 125 ML IV ×2 (14:18→21:01)
[2024-10-31] MEDS: Ciprofloxacin 400 MG/200 ML BAG 200 MG IV (21:02)
[2024-10-31] MEDS: Atorvastatin Calcium 20 MG Tablet PO (21:02)
[2024-10-31] MEDS: BRIMONIDINE 0.2% 5ML BOTTLE 1 DRP OPHTHALMIC (21:02)
[2024-10-31] MEDS: Docusate Sodium 100 MG Capsule 200 MG PO (21:02)
[2024-10-31] MEDS: Dorzolamide HCL/Timolol 10 ml Bottle 1 DRP OPHTHALMIC (21:04)
[2024-11-01 00:24] VITALS: BP 102/66; PULSE 78; RESP 18; TEMP 36.6; O2SAT 98
[2024-11-01] MEDS: 0.9% Normal Saline (1000mL) 1,000 ML 125 ML IV (04:35)
[2024-11-01] MEDS: Acetaminophen 325 MG Tablet 650 MG PO (04:56)
[2024-11-01 05:00] VITALS: BP 136/90; PULSE 81; RESP 18; TEMP 37.1; O2SAT 97
[2024-11-01 05:05] VITALS: BP 136/90; PULSE 81; RESP 18; TEMP 37.1; O2SAT 97
[2024-11-01 07:01] LABS: Absolute Lymphocyte Count 1.09 X10^3/uL (0.83-4.51); Basophil# 0.04 X10^3/uL; Basophil% 0.2 % (0-1); Hematocrit 44.1 % (40-54); Hemoglobin 14.7 g/dL (13.0-16.5); Lymphocyte # 1.09 X10^3/ul (0.83-4.51); Lymphocyte % 5.2 % (19-41); Mean Corp Hgb Conc 33.3 g/dL (32-36); Mean Corpuscular Hgb 31.9 pg (27.0-32.0); Mean Corpuscular Volume 95.7 fL (80-94); Mean Platelet Vol. 9.2 fl (6.2-12.0); Monocyte# 1.58 X10^3/uL; Monocyte% 7.6 % (0-10); NRBC Flagged by Analyzer 0 % (0-5); Neutrophil # 18.03 X10^3/uL (2.7-7.7); Neutrophil % 86.5 % (47-70); POSITIVE DIFFERENTIAL YES; Platelet Count 213 K/mm3 (150-450); RBC Distribution Width CV 13.4 % (11.6-14.6); RBC Distribution Width SD 47.2 fl (35.1-43.9); Red Blood Count 4.61 M/mm3 (4.6-6.2); White Blood Count 20.8 K/mm3 (4.4-11.0)
[2024-11-01 07:10] LABS: Differential Indicated SCAN CRITERIA MET
--- NOTE | 2024-11-01 07:29 | PN.URO_ITS ---
Subjective Subjective s/p radical prostatectomy minimal output from IRMA dc IRMA home with solorzano today Objective Data Objective Data Vital Signs: Vital Signs Temp Pulse Resp BP Pulse Ox O2 Del Method O2 Flow Rate 98.8 F 81 18 136/90 H 97 Room Air 2 11/01/24 05:05 11/01/24 05:05 11/01/24 05:05 11/01/24 05:05 11/01/24 05:05 11/01/24 05:05 10/31/24 14:00 Oxygen Flow Rate (L/min) 2 Oxygen Delivery Method Room Air Weight: 88 kg Body Mass Index (BMI) 29.5 Intake & Output: Intake and Output for Last 24 Hours 10/30/24 10/31/24 11/01/24 23:59 23:59 23:59 Intake Total 1359.58 / 1359.58 1264.58 / 1264.58 Output Total 720 / 720 320 / 320 Balance 639.58 / 639.58 944.58 / 944.58 Lab / Micro Data 11/01/24 06:05 10/31/24 11:50 Labs: Laboratory Results - last 24 hr 10/31/24 11:50: WBC 18.6 H, RBC 4.81, Hgb 15.3, Hct 46.2, MCV 96.0 H, MCH 31.8, MCHC 33.1, RDW Std Deviation 46.3 H, RDW Coeff of Veronica 13.0, Plt Count 202, MPV 9.0, Immature Gran % (Auto) 0.600, Neut % (Auto) 94.0 H, Lymph % (Auto) 3.8 L, [place] % (Auto) 1.2, Eos % (Auto) 0.1, Baso % (Auto) 0.3, Absolute Neuts (auto) 17.5 H, Absolute Lymphs (auto) 0.70 L, Nucleated RBC % 0, Sodium 141, Potassium 3.7, Chloride 111 H, Carbon Dioxide 26.0, Anion Gap 5, BUN 13, Creatinine 1.06, Estim Creat Clear Calc 75.92, Est GFR (MDRD) Af Amer 90, Est GFR (MDRD) Non-Af 75, BUN/Creatinine Ratio 12.3, Glucose 174 H, Calcium 8.5 11/01/24 06:05: WBC 20.8 H, RBC 4.61, Hgb 14.7, Hct 44.1, MCV 95.7 H, MCH 31.9, MCHC 33.3, RDW Std Deviation 47.2 H, RDW Coeff of Veronica 13.4, Plt Count 213, MPV 9.2, Immature Gran % (Auto) 0.500, Neut % (Auto) 86.5 H, Lymph % (Auto) 5.2 L, [place] % (Auto) 7.6, Eos % (Auto) 0.0, Baso % (Auto) 0.2, Absolute Neuts (auto) 18.0 H, Absolute Lymphs (auto) 1.09, Nucleated RBC % 0
[2024-11-01 07:45] LABS: Anion Gap 6 (5-15); BUN 15 mg/dL (7-18); Calcium,Total 9.2 mg/dL (8.5-10.1); Chloride 108 mmol/L (98-107); Creatinine, Serum 0.88 mg/dL (0.70-1.30); EST Glomerular Filtration Rate 92 mL/min (>60); Est Glom Filt Rate - Afr Amer 112 mL/min (>60); Estimated Creatinine Clearance 91.45 ml/min; Glucose 109 mg/dL (74-106); Potassium 3.8 mmol/L (3.5-5.1); Sodium Level 139 mmol/L (136-145)
[2024-11-01] MEDS: Dorzolamide HCL/Timolol 10 ml Bottle 1 DRP OPHTHALMIC (08:15)
[2024-11-01] MEDS: Docusate Sodium 100 MG Capsule 200 MG PO (08:16)
[2024-11-01] MEDS: BRIMONIDINE 0.2% 5ML BOTTLE 1 DRP OPHTHALMIC (08:16)
[2024-11-01] MEDS: Multivitamins,Therapeutic Tablet 1 TABLET PO (08:16)
[2024-11-01 09:00] VITALS: BP 143/93; PULSE 103; RESP 16; TEMP 36.6; O2SAT 95
[2024-11-01] MEDS: Mag Hydrox/Al Hydrox/Simeth 30 ML UDC PO (09:27)
[2024-11-01] MEDS: Ciprofloxacin 400 MG/200 ML BAG 200 MG IV (09:28)
--- NOTE | 2024-11-01 10:22 | CASEMGMT ---
Pt has an order for DC placed. RN CM to pt room at this time. Pt states that he lives alone and that he is independent. Pt will be going home with a Rodriguez and states that the RN already provided him with education. Pt denies further concerns at this time and states that he feels safe going home today. Pt RN aware.
[2024-11-01 15:04] LABS: Pathologist Review Reviewed
== END 2024-11-01 11:23 | disposition home or self-care (01) ==
LOC: SDC 12:45 → MS2 12:45
PROVIDERS: Anesthesiology; Admitting Provider Urology; PCP Dentist; Referring Provider Urology; Visit Provider Urology
PROC: 0VT04ZZ Resection of Prostate, Percutaneous Endoscopic Approach (ICD-10-PCS; CPT 55866; principal; 2024-10-31 07:10)
DX: C61 Malignant neoplasm of prostate (principal); E78.00 Pure hypercholesterolemia, unspecified; K21.9 Gastro-esophageal reflux disease without esophagitis; Z79.899 Other long term (current) drug therapy
CPT/HCPCS: 55866; 00865; 36415; 80048; 85025; 85027; 86850; 86900; 86901; 88305; 88309; 93005; 94668; 96361; 96365; 96366; 99221; 99252; A4216; G0378; G0463; J0744; J2405

== ENCOUNTER → 2025-01-29 | Outpatient (CLI) | payer OTHER, SELFPAY ==
[2025-01-29 16:00] LABS: PSA,Total- Diagnostic < 0.02 ng/mL (0.00-4.00)
== END | disposition home or self-care (01) ==
LOC: LAB 14:11
PROVIDERS: PCP Internal Medicine; Referring Provider Urology; Visit Provider Urology
DX: C61 Malignant neoplasm of prostate (principal)
CPT/HCPCS: 36415; 84153

== ENCOUNTER → 2025-04-29 | Outpatient (CLI) | payer OTHER, SELFPAY ==
[2025-04-29 12:26] LABS: PSA,Total- Diagnostic 0.04 ng/mL (0.00-4.00)
== END | disposition home or self-care (01) ==
LOC: LAB 11:24
PROVIDERS: PCP Internal Medicine; Referring Provider Urology; Visit Provider Urology
DX: C61 Malignant neoplasm of prostate (principal)
CPT/HCPCS: 36415; 84153